=== PATIENT | female | born 1960 ===

== ENCOUNTER 2017-11-18 17:22 | Inpatient (IN) | payer MEDICAID, OTHER ==
--- NOTE | 2017-11-18 18:04 | ED PDOC ---
Arrival/HPI - General Chief Complaint: Abdominal Pain Time Seen by Provider: 11/18/17 17:48 Historian: Patient - History of Present Illness Narrative History of Present Illness (Text): 11/18/17 18:04 This 57 yo female with pmh htn, presents to this ED c/o suprapubic pain, dysuria , and urinary frequency x 3 days. Patient also noted an episode of nausea, and fever x 3 days ago. When I asked patient about vomiting, she denied. Patient denies sob, cp, vaginal discharge, dizziness, hematuria, or abnormal gait. Time/Duration: Other (see hpi) Context: Home Past Medical History - Provider Review Nursing Documentation Reviewed: Yes - Infectious Disease Hx of Infectious Diseases: None - Reproductive Menopause: Yes - Cardiac Hx Cardiac Disorders: Yes Hx Hypertension: Yes - Psychiatric Hx Substance Use: No - Surgical History Hx Cholecystectomy: Yes Other/Comment: abd surgery - Anesthesia Hx Anesthesia: Yes Hx Anesthesia Reactions: No Family/Social History - Physician Review Nursing Documentation Reviewed: Yes Family/Social History: Other (noncontributory) Smoking Status: Light Smoker < 10 Cigarettes Daily Hx Alcohol Use: No Hx Substance Use: No Allergies/Home Meds Allergies/Adverse Reactions: Allergies No Known Allergies Allergy (Verified 11/13/15 17:03) Home Medications: Home Meds Medication Instructions Recorded Confirmed No Known Home Med 11/18/17 11/18/17 Review of Systems - Review of Systems Constitutional: Normal. absent: Fatigue, Weight Change, Fevers, Night Sweats Eyes: Normal ENT: Normal Respiratory: Normal. absent: SOB, Cough Cardiovascular: Normal. absent: Chest Pain, Palpitations Gastrointestinal: Other (suprapubic pain) Genitourinary Female: Dysuria, Frequency. absent: Hematuria, Urine Output Changes, Vaginal Bleeding, Vaginal Discharge Musculoskeletal: Normal. absent: Back Pain Skin: Normal. absent: Rash Neurological: Normal. absent: Headache, Dizziness, Focal Weakness, Gait Changes , Speech Changes, Facial Droop, Disequilibrium Endocrine: Normal Hemo/Lymphatic: Normal Psychiatric: Normal Physical Exam Vital Signs Temp Pulse Resp BP Pulse Ox 11/18/17 21:27 71 18 150/81 100 11/18/17 20:54 98.3 F 72 18 150/81 100 11/18/17 20:49 79 18 121/68 98 11/18/17 17:37 99.1 F 88 18 125/70 99 Temperature: Afebrile Blood Pressure: Normal Pulse: Regular Respiratory Rate: Normal Appearance: Positive for: Well-Appearing, Non-Toxic, Comfortable Pain Distress: None Mental Status: Positive for: Alert and Oriented X 3 - Systems Exam Head: Present: Atraumatic, Normocephalic Pupils: Present: PERRL Extroacular Muscles: Present: EOMI Conjunctiva: Present: Normal Mouth: Present: Moist Mucous Membranes Neck: Present: Normal Range of Motion Respiratory/Chest: Present: Clear to Auscultation, Good Air Exchange. No: Respiratory Distress, Accessory Muscle Use Cardiovascular: Present: Regular Rate and Rhythm, Normal S1, S2. No: Murmurs Abdomen: Present: Tenderness (Mild suprapubic tenderness), Normal Bowel Sounds. No: Distention, Peritoneal Signs, Rebound, Guarding Back: Present: Normal Inspection. No: CVA Tenderness Upper Extremity: Present: Normal Inspection, Normal ROM. No: Cyanosis, Edema Lower Extremity: Present: Normal Inspection, Normal ROM. No: Edema Neurological: Present: GCS=15, CN II-XII Intact, Speech Normal Skin: Present: Warm, Dry, Normal Color. No: Rashes Psychiatric: Present: Alert, Oriented x 3, Normal Insight, Normal Concentration Medical Decision Making ED Course and Treatment: 11/18/17 20:49 Patient refused pain medication at this time. Pain is 2-3/10 11/18/17 21:04 Furniture Mover Driver was paged 11/18/17 21:55 Furniture Mover Driver (Fatou Babcock) came to see patient. She stated she spoke with Dr. Iglesias who recommended admission for appendectomy tomorrow. Dr. Iglesias recommended to have patient admitted under hospitalist service, and Dr. Iglesias will be on consult. 11/18/17 22:07 Patient agreed with plan for admission 11/18/17 22:[address] Roslyn Post, house doctor regarding patient Dx. appendicitis. She agreed with admission on her service. Re-evaluation Time: 22:59 Reassessment Condition: Re-examined, Improving,but remains with symptoms - Lab Interpretations Lab Results: 11/18/17 19:36 11/18/17 19:36 Lab Results 11/18/17 19:36: Sodium 141, Potassium 3.9, Chloride 102, Carbon Dioxide 25, Anion Gap 18, BUN 18, Creatinine 0.6 L, Est GFR ( Amer) > 60, Est GFR ( Non-Af Amer) > 60, Random Glucose 91, Calcium 9.6, Total Bilirubin 0.7, AST 28, ALT 28, Alkaline Phosphatase 77, Total Protein 7.6, Albumin 4.6, Globulin 3.0, Albumin/Globulin Ratio 1.6, Lipase 30 11/18/17 19:36: WBC 7.8, RBC 4.14, Hgb 11.7 L, Hct 35.1 L, MCV 84.8, MCH 28.3, MCHC 33.3, RDW 13.7, Plt Count 286, MPV 10.8, Gran % 53.6, Lymph % (Auto) 36.8 H , [place] % (Auto) 6.2 H, Eos % (Auto) 3.1, Baso % (Auto) 0.3, Gran # 4.18, Lymph # (Auto) 2.9, [place] # (Auto) 0.5, Eos # (Auto) 0.2, Baso # (Auto) 0.02 11/18/17 18:27: Urine Color Yellow, Urine Appearance Clear, Urine pH 6.0, Ur Specific [place] <= 1.005, Urine Protein Negative, Urine Glucose (UA) Negative, Urine Ketones Negative, Urine Blood Small H, Urine Nitrate Negative, Urine Bilirubin Negative, Urine Urobilinogen 0.2, Ur Leukocyte Esterase Negative, Urine RBC 10 - 15, Urine WBC 5 - 10, Ur Epithelial Cells 10 - 12 I have reviewed the lab results: Yes Interpretation: No clinic. lab abnormalty - RAD Interpretation Narrative RAD Interpretations (Text): 11/18/17 21:01 FINDINGS: Lung bases: Unremarkable. No mass. No consolidation. ABDOMEN: Liver: Unremarkable. No mass. Gallbladder and bile ducts: Status post cholecystectomy. No ductal dilation. Pancreas: Pancreas evaluation is limited. No ductal dilation. Spleen: Unremarkable. No splenomegaly. Adrenals: Unremarkable. No mass. Kidneys and ureters: Probable cyst in the left kidney. No hydronephrosis. Stomach and bowel: Unremarkable. No obstruction. No mucosal thickening. PELVIS: Appendix: The appendix is dilated measuring 1.2 cm, its fluid filled. There is wall enhancement. The findings are consistent with acute appendicitis. No abscess formation. No free air. Bladder: Unremarkable. No mass. Reproductive: Unremarkable as visualized. ABDOMEN and PELVIS: Intraperitoneal space: See above. Bones/joints: No acute fracture. No dislocation. Soft tissues: Unremarkable. Vasculature: Unremarkable. No abdominal aortic aneurysm. Lymph nodes: Unremarkable. No enlarged lymph nodes. IMPRESSION: The appendix is dilated measuring 1.2 cm, its fluid filled. There is wall enhancements. The findings are consistent with acute appendicitis. No abscess formation. No free air. Radiology Orders: 11/18/17 19:05 ABD & PELVIS IV CONTRAST ONLY [CT] Stat 11/18/17 22:50 CHEST PORTABLE [RAD] Routine - Medication Orders Current Medication Orders: Cefazolin Sodium (Ancef 1gm In Ns) 1 gm in 100 mls @ 100 mls/hr IVPB STAT STA PRN Reason: Protocol Stop: 11/18/17 23:48 Disposition/Present on Arrival - Present on Arrival Any Indicators Present on Arrival: No History of DVT/PE: No History of Uncontrolled Diabetes: No Urinary Catheter: No History of Decub. Ulcer: No History Surgical Site Infection Following: None - Disposition Have Diagnosis and Disposition been Completed?: Yes Diagnosis: Appendicitis Disposition: HOSPITALIZED Disposition Time: 23:00 Patient Plan: Admission Condition: STABLE Forms: [employer] (Estonian)
[2017-11-18 18:45] LABS: URINE BILIRUBIN NEGATIVE (NEGATIVE); URINE BLOOD SMALL (NEGATIVE); URINE GLUCOSE (UA) NEGATIVE (NEGATIVE); URINE LEUKOCYTE ESTERASE NEGATIVE Leu/uL (NEGATIVE); URINE PROTEIN NEGATIVE mg/dL (<30 mg/dL); URINE UROBILINOGEN 0.2 E.U./dL (<1 E.U./dL)
[2017-11-18 18:50] LABS: URINE APPEARANCE CLEAR (CLEAR); URINE COLOR YELLOW (YELLOW)
[2017-11-18] MEDS ORDERED: Iohexol 350 MG/100 ML VIAL ONE (19:10)
[2017-11-18 19:49] LABS: BASO # 0.02 K/mm3 (0.0-2.0); BASO % 0.3 % (0.0-3.0); EOS # 0.2 (0.0-0.7); EOS % 3.1 % (1.5-5.0); GRAN # 4.18 (1.4-6.5); GRAN % 53.6 % (50.0-68.0); HEMOGLOBIN 11.7 g/dL (12.0-16.0); LYMPH # 2.9 (1.2-3.4); LYMPH % 36.8 % (22.0-35.0); MEAN CELL VOLUME 84.8 fl (80.0-105.0); MEAN CORPUSCULAR HEMOGLOBIN 28.3 pg (25.0-35.0); MEAN CORPUSCULAR HGB CONC 33.3 g/dl (31.0-37.0); MEAN PLATELET VOLUME 10.8 fl (7.0-11.0); MONO # 0.5 (0.1-0.6); MONO % 6.2 % (1.0-6.0); RBC 4.14 10^6/uL (3.5-6.1); RED CELL DISTRIBUTION WIDTH 13.7 % (11.5-14.5); WHITE BLOOD COUNT 7.8 10^3/ul (4.5-11.0)
[2017-11-18 20:08] LABS: ALB/GLOB RATIO 1.6 (1.1-1.8); ALBUMIN 4.6 g/dL (3.0-4.8); ALT/SGPT 28 U/L (7-56); AST/SGOT 28 U/L (14-36); BLOOD UREA NITROGEN 18 mg/dL (7-21); CALCIUM 9.6 mg/dL (8.4-10.5); GFR AFRICAN-AMERICAN > 60; GFR NON-AFRICAN AMERICAN > 60; LIPASE 30 U/L (23-300)
--- NOTE | 2017-11-18 22:32 | CP.PCM.CON ---
Addendum entered and electronically signed by Fatou Cameron DO 11/19/17 08:17 : Correction: consult note is for Dr. Sales Original Note: <Fatou Cameron - Last Filed: 11/18/17 23:03> History of Present Illness - History of Present Illness History of Present Illness: GENERAL SURGERY CONSULT NOTE FOR DR. BALL 57yo F with PMHx of HTN presents to the ED with suprapubic abdominal pain. She initially had pain on Saturday which resolved with Aleve x2. The pain returned today and is located in the suprapubic/infraumbilical area. She vomited once on Saturday. No current nausea or vomiting. Denies diarrhea or constipation. Last BM yesterday. Pt had urinary frequency and mild dysuria on Saturday but it resolved. Pt last ate fruit for lunch but was "too scared to eat more than that". PMHx: HTN (not on medication) Surgeries: open cholecystectomy 30 years ago Allergies: none Medications: none Social history: occasional etoh, smokes 1/2 PPD, denies illicit drug use Review of Systems - Review of Systems All systems: reviewed and no additional remarkable complaints except (as per HPI ) Past Patient History - Infectious Disease Hx of Infectious Diseases: None - Past Social History Smoking Status: Light Smoker < 10 Cigarettes Daily - CARDIAC Hx Cardiac Disorders: Yes Hx Hypertension: Yes - PSYCHIATRIC Hx Substance Use: No - SURGICAL HISTORY Hx Cholecystectomy: Yes Other/Comment: abd surgery - ANESTHESIA Hx Anesthesia: Yes Hx Anesthesia Reactions: No Meds Allergies/Adverse Reactions: Allergies Allergy/AdvReac Type Severity Reaction Status Date / Time No Known Allergies Allergy Verified 11/13/15 17:03 Physical Exam - Constitutional Appears: Well, Non-toxic, No Acute Distress - Head Exam Head Exam: ATRAUMATIC, NORMAL INSPECTION - Eye Exam Eye Exam: EOMI, Normal appearance - Respiratory Exam Respiratory Exam: NORMAL BREATHING PATTERN. absent: Respiratory Distress - Cardiovascular Exam Cardiovascular Exam: +S1, +S2 - GI/Abdominal Exam GI & Abdominal Exam: Soft, Tenderness (tender RLQ > suprapubic). absent: Distended, Firm, Guarding, Hernia, Rebound, Rigid Additional comments: + McBurney point tenderness - Neurological Exam Neurological exam: Alert, CN II-XII Intact, Oriented x3 - Psychiatric Exam Psychiatric exam: Normal Affect, Normal Mood - Skin Skin Exam: Dry, Normal Color, Warm Results - Vital Signs Recent Vital Signs: Last Vital Signs Temp 98.3 F 11/18/17 20:54 Pulse 71 11/18/17 21:27 Resp 18 11/18/17 21:27 BP 150/81 11/18/17 21:27 Pulse Ox 100 11/18/17 21:27 - Labs Result Diagrams: 11/18/17 19:36 11/18/17 19:36 Labs: Laboratory Results - last 24 hr 11/18/17 11/18/17 11/18/17 18:27 19:36 19:36 WBC 7.8 RBC 4.14 Hgb 11.7 L Hct 35.1 L MCV 84.8 MCH 28.3 MCHC 33.3 RDW 13.7 Plt Count 286 MPV 10.8 Gran % 53.6 Lymph % (Auto) 36.8 H [place] % (Auto) 6.2 H Eos % (Auto) 3.1 Baso % (Auto) 0.3 Gran # 4.18 Lymph # (Auto) 2.9 [place] # (Auto) 0.5 Eos # (Auto) 0.2 Baso # (Auto) 0.02 Sodium 141 Potassium 3.9 Chloride 102 Carbon Dioxide 25 Anion Gap 18 BUN 18 Creatinine 0.6 L Est GFR ( Amer) > 60 Est GFR (Non-Af Amer) > 60 Random Glucose 91 Calcium 9.6 Total Bilirubin 0.7 AST 28 ALT 28 Alkaline Phosphatase 77 Total Protein 7.6 Albumin 4.6 Globulin 3.0 Albumin/Globulin Ratio 1.6 Lipase 30 Urine Color Yellow Urine Appearance Clear Urine pH 6.0 Ur Specific [place] <= 1.005 Urine Protein Negative Urine Glucose (UA) Negative Urine Ketones Negative Urine Blood Small H Urine Nitrate Negative Urine Bilirubin Negative Urine Urobilinogen 0.2 Ur Leukocyte Esterase Negative Urine RBC 10 - 15 Urine WBC 5 - 10 Ur Epithelial Cells 10 - 12 Assessment & Plan - Assessment and Plan (Free Text) Assessment: 57yo F with PMHx of HTN presents with abdominal pain - Afebrile, VSS - No leukocytosis - UA negative for UTI - CT w/ IV contrast: 1.2cm dilated and fluid filled appendix with wall enhancement consistent with acute appendicitis - Plan for OR tomorrow for appendectomy - Procedure explained to patient including risks, benefits, and alternatives. Pt agrees for surgery and written consent was obtained - NPO past midnight - IV fluids - IV antibiotics - Recheck labs in AM + coags - CXR & EKG - Discussed plan with Dr. Kelsie Cameron PGY-4 <Bety Sales - Last Filed: 11/19/17 16:18> Meds - Medications Medications: Current Medications Acetaminophen (Tylenol 325mg Tab) 650 mg PO Q6H PRN PRN Reason: Pain, Mild (1-3) Famotidine (Pepcid) 20 mg IVP DAILY [facility] Last Admin: 11/19/17 10:09 Dose: 20 mg Piperacillin Sod/Tazobactam Sod (Zosyn 3.375 In Ns 100ml) 100 mls @ 200 mls/hr IVPB Q6 SOFY PRN Reason: Protocol Stop: 11/19/17 18:29 Last Admin: 11/19/17 11:09 Dose: 200 mls/hr Lactated Ringer's (Lactated Ringer's) 1,000 mls @ 115 mls/hr IV .[id number] [facility] Last Admin: 11/19/17 12:25 Dose: 115 mls/hr Morphine Sulfate (Morphine) 2 mg IVP Q4 PRN PRN Reason: Pain, severe (8-10) Ondansetron HCl (Zofran Inj) 4 mg IVP Q4 PRN PRN Reason: Nausea/Vomiting Oxycodone/Acetaminophen (Percocet 5/325 Mg Tab) 1 tab PO Q4 PRN PRN Reason: Pain, moderate (4-7) Stop: 11/22/17 00:01 Results - Vital Signs Recent Vital Signs: Last Vital Signs Temp 98.6 F 11/19/17 15:45 Pulse 59 L 11/19/17 15:45 Resp 20 11/19/17 15:45 BP 124/67 11/19/17 15:45 Pulse Ox 99 11/19/17 15:45 - Labs Result Diagrams: 11/19/17 06:10 11/19/17 06:10 Labs: Laboratory Results - last 24 hr 11/19/17 11/19/17 11/19/17 06:10 06:10 06:10 WBC 7.0 RBC 4.09 Hgb 11.6 L Hct 35.2 L MCV 86.1 MCH 28.4 MCHC 33.0 RDW 14.1 Plt Count 295 MPV 10.7 Gran % 45.3 L Lymph % (Auto) 43.1 H [place] % (Auto) 6.0 Eos % (Auto) 5.2 H Baso % (Auto) 0.4 Gran # 3.17 Lymph # (Auto) 3.0 [place] # (Auto) 0.4 Eos # (Auto) 0.4 Baso # (Auto) 0.03 PT 12.5 INR 1.09 H APTT 37.7 H Sodium 143 Potassium 3.9 Chloride 107 Carbon Dioxide 27 Anion Gap 14 BUN 14 Creatinine 0.5 L Est GFR ( Amer) > 60 Est GFR (Non-Af Amer) > 60 Random Glucose 98 Calcium 9.0 Assessment & Plan - Assessment and Plan (Free Text) Plan: I personally saw and examined the patient with the resident staff and agree with the above assessment and plan. I personally reviewed the available diagnostic images and imaging reports. 57 Female 1 days of symptoms consistent with CT findings of early uncomplicated appendicitis. Risks and benefits of laparoscopic appendectomy, including but not limited to bowel injury, staple leak, intra-abdominal abscess, need for open surgery discussed and all questions answered. Patient understands these risks and wishes to proceed. Informed consent obtained. - Date & Time Date: 11/19/17 Time: 16:15
[2017-11-18] MEDS ORDERED: ceFAZolin 1 gm in NS 1 GM/100 ML BAG IVPB STA (22:49)
[2017-11-18] MEDS ORDERED: Oxycodone/Acetaminophen 5/325 mg Tab PO PRN (22:54)
[2017-11-18] MEDS ORDERED: Morphine 2 mg/ml ISec IVP PRN (22:55)
[2017-11-18] MEDS: Lactated Ringer's 1,000 ML IV SCH (23:40)
--- NOTE | 2017-11-19 00:02 | CP.PCM.HP ---
<Alirio Sales - Last Filed: 11/19/17 00:41> History of Present Illness - History of Present Illness History of Present Illness: Alirio Henrry PGY1 - Internal Medicine Orthopedics Nurse - Hospital H&P 57 F w/ a PMH of HTN presented to [facility] ED on 11/18 w/ a CC of LLQ and RLQ abdominal pain. She reported pain started on Saturday w/ associated 1x episode of NBNB vomit. On Saturday reported subjective fevers. Pt. stated that the pain is constant; non radiating sharp/ stabbing sensation gradually worsening over last 2-3 days. Patient is tolerating PO however stating she is scared to eat. Pain is alleviated w/ walking / moving. She denies any WELLS, BV, CP, Palp, SOB, Cough, D/C, FND, Nubmness/tingling, hematuria, and dysuria. In ED: Started on x1 Ancef, Zosym, percocet/morphine 2Q4; CTAP findings: The appendix is dilated measuring 1.2 cm, its fluid filled. There is wall enhancement. The findings are consistent with acute appendicitis. No abscess formation. No free air. CBC/ CMP WNL. Surgery consulted in ED. PMD: none Pharmacy: [facility] PMH: HTN - no Rx PSH: Cholecystectomy 30 years prior HomeRx: None Allergy: NKDA FamilyHx - mother HTN, Social history: occasional etoh, smokes 1/2 PPD, denies illicit drug use Present on Admission - Present on Admission Any Indicators Present on Admission: No Past Patient History - Infectious Disease Hx of Infectious Diseases: None - Past Social History Smoking Status: Light Smoker < 10 Cigarettes Daily - CARDIAC Hx Cardiac Disorders: Yes Hx Hypertension: Yes - PSYCHIATRIC Hx Substance Use: No - SURGICAL HISTORY Hx Cholecystectomy: Yes Other/Comment: abd surgery - ANESTHESIA Hx Anesthesia: Yes Hx Anesthesia Reactions: No Meds Allergies/Adverse Reactions: Allergies Allergy/AdvReac Type Severity Reaction Status Date / Time No Known Allergies Allergy Verified 11/13/15 17:03 Results - Vital Signs Recent Vital Signs: Last Vital Signs Temp 98.4 F 11/18/17 23:40 Pulse 70 11/18/17 23:40 Resp 18 11/18/17 23:40 BP 125/84 11/18/17 23:40 Pulse Ox 100 11/18/17 23:40 - Labs Result Diagrams: 11/18/17 19:36 11/18/17 19:36 Assessment & Plan - Assessment and Plan (Free Text) Assessment: 57 F w/ a PMH of HTN presented to [facility] ED on 11/18 w/ a CC of LLQ and RLQ abdominal pain; found to have acute appendicitis on CTAP. 1. Acute appendicitis: ED CTAP: The appendix is dilated measuring 1.2 cm, its fluid filled. There is wall enhancement. The findings are consistent with acute appendicitis. No abscess formation. No free air. NPO Cont Zofran for nausea PRN Cont Morphine 2mg q4 prn severe pain PRN Abx: x1 dose ancef given in ED, Started Zosyn; CBC/CMP nl in ED; Follow AM labs Surgical consult for reccs ; Plan for OR tomorrow for appendectomy 2. Hx HTN Monitor BP; Medically manage as needed 3. GI/DVT PPX Famotidine / SCDs Patient seen and discussed w/ attending Dr. Sejal Sales DO - PGY1 Internal Medicine Orthopedics Nurse - - Date & Time Date: 11/19/17 Time: 00:27 <Christina Post - Last Filed: 11/19/17 20:02> Results - Vital Signs Recent Vital Signs: Last Vital Signs Temp 98.4 F 11/19/17 19:20 Pulse 60 11/19/17 19:20 Resp 17 11/19/17 19:20 BP 121/64 11/19/17 19:20 Pulse Ox 100 11/19/17 19:20 - Labs Result Diagrams: 11/19/17 06:10 11/19/17 06:10 Labs: Laboratory Results - last 24 hr 11/19/17 11/19/17 11/19/17 06:10 06:10 06:10 WBC 7.0 RBC 4.09 Hgb 11.6 L Hct 35.2 L MCV 86.1 MCH 28.4 MCHC 33.0 RDW 14.1 Plt Count 295 MPV 10.7 Gran % 45.3 L Lymph % (Auto) 43.1 H [place] % (Auto) 6.0 Eos % (Auto) 5.2 H Baso % (Auto) 0.4 Gran # 3.17 Lymph # (Auto) 3.0 [place] # (Auto) 0.4 Eos # (Auto) 0.4 Baso # (Auto) 0.03 PT 12.5 INR 1.09 H APTT 37.7 H Sodium 143 Potassium 3.9 Chloride 107 Carbon Dioxide 27 Anion Gap 14 BUN 14 Creatinine 0.5 L Est GFR ( Amer) > 60 Est GFR (Non-Af Amer) > 60 Random Glucose 98 Calcium 9.0
[2017-11-19 01:25] VITALS: BMI 23.6
[2017-11-19] MEDS: Piperacillin/Tazobact 3.375 gm 100 ML IVPB SCH ×4 (02:58→18:49)
[2017-11-19 06:42] LABS: BASO # 0.03 K/mm3 (0.0-2.0); BASO % 0.4 % (0.0-3.0); EOS # 0.4 (0.0-0.7); EOS % 5.2 % (1.5-5.0); GRAN # 3.17 (1.4-6.5); GRAN % 45.3 % (50.0-68.0); HEMOGLOBIN 11.6 g/dL (12.0-16.0); LYMPH % 43.1 % (22.0-35.0); MEAN CELL VOLUME 86.1 fl (80.0-105.0); MEAN CORPUSCULAR HEMOGLOBIN 28.4 pg (25.0-35.0); MEAN PLATELET VOLUME 10.7 fl (7.0-11.0); MONO # 0.4 (0.1-0.6); RBC 4.09 10^6/uL (3.5-6.1); RED CELL DISTRIBUTION WIDTH 14.1 % (11.5-14.5)
[2017-11-19 06:54] LABS: INR 1.09 (0.93-1.08); PARTIAL THROMBOPLASTIN TIME 37.7 Seconds (25.1-36.5); PROTHROMBIN TIME 12.5 SECONDS (9.4-12.5)
[2017-11-19 07:14] LABS: BLOOD UREA NITROGEN 14 mg/dL (7-21); GFR AFRICAN-AMERICAN > 60; GFR NON-AFRICAN AMERICAN > 60
--- NOTE | 2017-11-19 08:39 | RAD ---
Date of service: 11/18/2017 HISTORY: preop COMPARISON: No prior. FINDINGS: LUNGS: The lungs are well inflated and clear. PLEURA: No significant pleural effusion identified, no pneumothorax apparent. CARDIOVASCULAR: Normal. OSSEOUS STRUCTURES: No significant abnormalities. VISUALIZED UPPER ABDOMEN: Normal. OTHER FINDINGS: Surgical clips in the right upper quadrant are related to prior cholecystectomy. IMPRESSION: No active pulmonary disease.
--- NOTE | 2017-11-19 09:20 | CT ---
Date of service: 11/18/2017 PROCEDURE: CT Abdomen and Pelvis with contrast HISTORY: suprapubic pain COMPARISON: None. TECHNIQUE: Contrast dose: 100 cc of Omni 350 Radiation dose: Total exam DLP = 262 mGy-cm. This CT exam was performed using one or more of the following dose reduction techniques: Automated exposure control, adjustment of the mA and/or kV according to patient size, and/or use of iterative reconstruction technique. FINDINGS: LOWER THORAX: Unremarkable. LIVER: Unremarkable. No gross lesion or ductal dilatation. GALLBLADDER AND BILE DUCTS: Removed PANCREAS: Unremarkable. No gross lesion or ductal dilatation. SPLEEN: Unremarkable. ADRENALS: Unremarkable. No mass. KIDNEYS AND URETERS: Unremarkable. No hydronephrosis. No solid mass. VASCULATURE: Unremarkable. No aortic aneurysm. BOWEL: Unremarkable. No obstruction. No gross mural thickening. APPENDIX: There is acute appendicitis. The appendix is fluid-filled and dilated to a diameter of 12 mm. There is enhancement of the wall. PERITONEUM: Unremarkable. No free fluid. No free air. LYMPH NODES: Unremarkable. No enlarged lymph nodes. BLADDER: Unremarkable. REPRODUCTIVE: Unremarkable. BONES: No acute fracture. OTHER FINDINGS: The report concurs with the preliminary [facility] report IMPRESSION: There is acute appendicitis. The appendix is fluid-filled and dilated to a diameter of 12 mm. There is enhancement of the wall.
--- NOTE | 2017-11-19 09:27 | CARD ---
APPROVED REPORT Date of service: 11/18/2017 EKG Measurement Heart [id number] <Conclusion> Normal sinus rhythm Normal ECG
[2017-11-19] MEDS: Lactated Ringer's 1,000 ML IV SCH (12:25)
--- NOTE | 2017-11-19 14:35 | CP.PCM.PN ---
<Chip Boo - Last Filed: 11/19/17 18:53> Subjective - Date & Time of Evaluation Date of Evaluation: 11/19/17 Time of Evaluation: 14:30 - Subjective Subjective: Chip Boo D.O PGY-1, Internal Medicine progress note for Dr. Sales Patient was examined at bedside. Patient still complains of abdominal pain. Denies fevers, chills, chest pain, shortness of breath, N/V/D, and urinary symptoms. Objective - Vital Signs/Intake and Output Vital Signs (last 24 hours): Temp Pulse Resp BP Pulse Ox 97.1 F L 59 L 18 114/63 97 11/19/17 06:00 11/19/17 06:00 11/19/17 06:00 11/19/17 06:00 11/19/17 06:00 Intake and Output: 11/19/17 11/19/17 06:59 18:59 Intake Total 0 Output Total 1 Balance -1 - Medications Medications: Current Medications Acetaminophen (Tylenol 325mg Tab) 650 mg PO Q6H PRN PRN Reason: Pain, Mild (1-3) Famotidine (Pepcid) 20 mg IVP DAILY [facility] Last Admin: 11/19/17 10:09 Dose: 20 mg Piperacillin Sod/Tazobactam Sod (Zosyn 3.375 In Ns 100ml) 100 mls @ 200 mls/hr IVPB Q6 SOFY PRN Reason: Protocol Stop: 11/19/17 18:29 Last Admin: 11/19/17 11:09 Dose: 200 mls/hr Lactated Ringer's (Lactated Ringer's) 1,000 mls @ 115 mls/hr IV .[id number] [facility] Last Admin: 11/19/17 12:25 Dose: 115 mls/hr Morphine Sulfate (Morphine) 2 mg IVP Q4 PRN PRN Reason: Pain, severe (8-10) Ondansetron HCl (Zofran Inj) 4 mg IVP Q4 PRN PRN Reason: Nausea/Vomiting Oxycodone/Acetaminophen (Percocet 5/325 Mg Tab) 1 tab PO Q4 PRN PRN Reason: Pain, moderate (4-7) Stop: 11/22/17 00:01 - Labs Labs: 11/19/17 06:10 11/19/17 06:10 PT 12.5 SECONDS (9.4-12.5) 11/19/17 06:10 INR 1.09 (0.93-1.08) H 11/19/17 06:10 APTT 37.7 Seconds (25.1-36.5) H 11/19/17 06:10 - Constitutional Appears: No Acute Distress - Head Exam Head Exam: ATRAUMATIC, NORMAL INSPECTION - Eye Exam Eye Exam: Normal appearance - ENT Exam ENT Exam: Mucous Membranes Moist - Respiratory Exam Respiratory Exam: Clear to Ausculation Bilateral. absent: Rales, Rhonchi, Wheezes - Cardiovascular Exam Cardiovascular Exam: REGULAR RHYTHM, +S1, +S2. absent: Gallop, Rubs, Murmur - GI/Abdominal Exam GI & Abdominal Exam: Guarding, Soft, Tenderness, Normal Bowel Sounds. absent: Distended, Rigid, Pulsatile Mass Additional comments: Very tender to palpation on right lower quadrant at Mcburneys point. Positive Rovsing's sign. - Extremities Exam Extremities Exam: absent: Calf Tenderness, Pedal Edema - Neurological Exam Neurological Exam: Alert, Awake, Oriented x3 - Psychiatric Exam Psychiatric exam: Normal Affect, Normal Mood - Skin Skin Exam: Dry, Normal Color, Warm Assessment and Plan - Assessment and Plan (Free Text) Assessment: Ms. Brown is a 57 yo female with PMH of HTN presenting with abdominal pain located on the right and left lower quadrants of the abdomen. CT abdomen and pelvis is positive for acute appendicitis. Patient is going to surgery today. Plan: Acute appendicitis - CT abdomen/pelvis (11/18): The appendix is dilated measuring 1.2 cm, its fluid filled. There is wall enhancement. The findings are consistent with acute appendicitis. No abscess formation. No free air. - Surgery consulted, patient is an add-on for surgery today later in the afternoon - Patient is NPO - c/w Zofran for nausea PRN - c/w percocet 5/325mg Q4 PRN for moderate pain and Morphine 2mg q4 prn severe pain PRN - Patient is on IVF: LR @115 mls/hr - One dose of Cefazolin given in ED, Started Zosyn History of hypertension - patient has not been on medication for more than 6 months- stopped due to insurance issues and do not remember the name of medication - blood pressure has been stable - will continue to monitor GI/DVT prophylaxis: Protonix, SCD's Patient seen, examined, and case discussed with Dr. Sales <Pamela Sales - Last Filed: 11/20/17 07:34> Objective - Vital Signs/Intake and Output Vital Signs (last 24 hours): Temp Pulse Resp BP Pulse Ox 98.4 F 60 17 121/64 100 11/19/17 19:20 11/19/17 19:20 11/19/17 19:20 11/19/17 19:20 11/19/17 19:20 Intake and Output: 11/20/17 11/20/17 06:59 18:59 Intake Total 740 Output Total 2 Balance 738 - Medications Medications: Current Medications Acetaminophen (Tylenol 325mg Tab) 650 mg PO Q6H PRN PRN Reason: Pain, Mild (1-3) Ondansetron HCl (Zofran Inj) 4 mg IVP Q4 PRN PRN Reason: Nausea/Vomiting Oxycodone/Acetaminophen (Percocet 5/325 Mg Tab) 1 tab PO Q4 PRN PRN Reason: Pain, moderate (4-7) Stop: 11/22/17 00:01 Last Admin: 11/20/17 05:03 Dose: 1 tab - Labs Labs: 11/19/17 06:10 11/19/17 06:10 PT 12.5 SECONDS (9.4-12.5) 11/19/17 06:10 INR 1.09 (0.93-1.08) H 11/19/17 06:10 APTT 37.7 Seconds (25.1-36.5) H 11/19/17 06:10 Attending/Attestation - Attestation I have personally seen and examined this patient.: Yes I have fully participated in the care of the patient.: Yes I have reviewed all pertinent clinical information, including history, physical exam and plan: Yes Notes (Text): Patient seen and examined by me at 11:50AM with resident. Case including HPI, physical exam, and physical assessment and plan discussed with resident. Agree with above with following additions/corrections. Patient states she is feeling ok. Complains of lower abdominal pain. Pain does radiate to entire abdomen and lower back. Pain comes and goes. Worse with movement. Pain medications are helping. No chest pain or shortness of breath. No fevers or chills. No headaches or dizziness. No dysuria. No diarrhea or constipation. Physical exam: Gen: Awake and alert lying in bed in no acute distress HEENT: Normocephalic atraumatic. Extraocular muscles intact, pupils equal reactive. Oropharynx is pink and moist, no pharyngeal erythema or exudate appreciated. Neck is supple. Cardiovascular: Normal rhythm, normal S1-S2. No murmurs, rubs, or gallops appreciated Pulmonary: Normal respiratory effort. No rhonchi, rales or wheezing appreciated. Gastrointestinal: Soft, positive right lower quadrant tenderness to light palpation, positive rebound, nondistended, positive bowel sounds all 4 quadrants , no guarding Musculoskeletal: Moves all extremities, no calf tenderness Central nervous system: AAOx3 Dermatologic: Skin warm and dry Assessment and plan: Patient is a 57-year-old female with past medical history significant for hypertension that presented to the emergency room with lower abdominal pain. Patient found to have acute appendicitis. 1. Acute appendicitis. CT abd/pelvis per radiologist shows acute appendicitis, appendix is fluid-filled and dilated to a diameter of 12 mm, there is enhancement of the wall. Surgery following, recommendations appreciated. Patient for surgery today. Continue IV fluids. Continue with pain management. Patient is nothing by mouth. 2. Lower abdominal pain. Secondary to #1. Continue pain management. Patient for surgery today. 3. Anemia. Unsure what patient's baseline H&H is. We'll monitor for now. 4. History of hypertension. Patient is not on any medications for this. Monitor blood pressure and add medications if needed. 5. DVT prophylaxis. Bilateral SCDs Case was discussed in detail with the patient and hospital medical biller regarding current diagnosis and treatment plan.
[2017-11-19] MEDS ORDERED: Succinylcholine 200 mg/10 ml Inj IV ONE (16:27)
[2017-11-19] MEDS ORDERED: Midazolam 2 MG/2 ML VIAL ONE (16:30)
[2017-11-19] MEDS ORDERED: Propofol 10 mg/ml Inj (20 ML) ONE (16:30)
[2017-11-19] MEDS ORDERED: Bupivacaine 0.25% Inj(30mL) ONE (16:38)
[2017-11-19] MEDS ORDERED: Lidocaine 1% w Epi 1:100,000 Inj ONE ×2 (16:38→16:41)
[2017-11-19] MEDS ORDERED: Rocuronium 10 mg/ml (5 ml) ONE (16:50)
[2017-11-19] MEDS ORDERED: LIDOCAIN/EPI 1-0.001% 10ML INJ SOL IJ ONE (16:52)
[2017-11-19] MEDS ORDERED: Bupivacaine 0.25% Inj(30mL) IJ ONE (16:52)
[2017-11-19] MEDS ORDERED: Neostigmine Methylsulfate 3mg/3ml Syringe IV ONE (18:09)
[2017-11-19] MEDS ORDERED: HYDROmorphone 0.5 mg/0.5 ml ISec IVP PRN (18:40)
--- NOTE | 2017-11-19 18:41 | PCM.SURG1 ---
Surgeon's Initial Post Op Note - Surgeon's Notes Surgeon: Dr. Sales Rn Neurology: Dr. Gregory PGY-3 Type of Anesthesia: General Endo Anesthesia Administered By: Dr. Young Pre-Operative Diagnosis: Acute Appendicitis Operative Findings: See operative report Post-Operative Diagnosis: Same Operation Performed: Laparoscopic Appendectomy Specimen/Specimens Removed: Appendix Estimated Blood Loss: EBL {In ML}: 10 Blood Products Given: N/A Drains Used: No Drains Post-Op Condition: Good Date of Surgery/Procedure: 11/19/17 Time of Surgery/Procedure: 18:41
[2017-11-19] MEDS ORDERED: Lactated Ringer's 1,000 ML IV SCH (18:45)
[2017-11-19 18:52] VITALS: TEMP 98.4
[2017-11-20 07:34] LABS: BASO # 0.02 K/mm3 (0.0-2.0); BASO % 0.2 % (0.0-3.0); EOS # 0.1 (0.0-0.7); EOS % 1.5 % (1.5-5.0); GRAN # 5.7 (1.4-6.5); HEMOGLOBIN 10.3 g/dL (12.0-16.0); MEAN CELL VOLUME 86.1 fl (80.0-105.0); MEAN CORPUSCULAR HEMOGLOBIN 28.7 pg (25.0-35.0); MEAN CORPUSCULAR HGB CONC 33.3 g/dl (31.0-37.0); MEAN PLATELET VOLUME 10.8 fl (7.0-11.0); MONO # 0.5 (0.1-0.6); MONO % 6.3 % (1.0-6.0); RBC 3.59 10^6/uL (3.5-6.1); RED CELL DISTRIBUTION WIDTH 14.1 % (11.5-14.5); WHITE BLOOD COUNT 8.4 10^3/ul (4.5-11.0)
[2017-11-20 07:52] LABS: BLOOD UREA NITROGEN 12 mg/dL (7-21); CALCIUM 8.7 mg/dL (8.4-10.5); GFR AFRICAN-AMERICAN > 60; GFR NON-AFRICAN AMERICAN > 60
[2017-11-20 08:25] VITALS: BP 119/67; PULSE 79; RESP 20; O2SAT 97
--- NOTE | 2017-11-20 11:48 | CP.PCM.PN ---
Subjective - Date & Time of Evaluation Date of Evaluation: 11/20/17 Time of Evaluation: 07:00 - Subjective Subjective: GENERAL SURGERY PROGRESS NOTE FOR DR. NAVAS Patient seen and examined at bedside. She is tolerating diet, denies nausea or vomiting. Pain well controlled with PO pain medications. Pt is OOB and ambulating. Objective - Vital Signs/Intake and Output Vital Signs (last 24 hours): Temp Pulse Resp BP Pulse Ox 98.4 F 79 20 119/67 97 11/20/17 06:00 11/20/17 06:00 11/20/17 06:00 11/20/17 06:00 11/20/17 06:00 Intake and Output: 11/20/17 11/20/17 06:59 18:59 Intake Total 740 Output Total 2 Balance 738 - Medications Medications: Current Medications Acetaminophen (Tylenol 325mg Tab) 650 mg PO Q6H PRN PRN Reason: Pain, Mild (1-3) Ondansetron HCl (Zofran Inj) 4 mg IVP Q4 PRN PRN Reason: Nausea/Vomiting Oxycodone/Acetaminophen (Percocet 5/325 Mg Tab) 1 tab PO Q4 PRN PRN Reason: Pain, moderate (4-7) Stop: 11/22/17 00:01 Last Admin: 11/20/17 05:03 Dose: 1 tab - Labs Labs: 11/20/17 07:00 11/20/17 07:00 PT 12.5 SECONDS (9.4-12.5) 11/19/17 06:10 INR 1.09 (0.93-1.08) H 11/19/17 06:10 APTT 37.7 Seconds (25.1-36.5) H 11/19/17 06:10 - Constitutional Appears: Well, Non-toxic, No Acute Distress - Head Exam Head Exam: ATRAUMATIC, NORMAL INSPECTION - Eye Exam Eye Exam: EOMI, Normal appearance - Respiratory Exam Respiratory Exam: NORMAL BREATHING PATTERN. absent: Respiratory Distress - Cardiovascular Exam Cardiovascular Exam: +S1, +S2 - GI/Abdominal Exam GI & Abdominal Exam: Soft, Tenderness (mild yuriy-incisional tenderness, appropriate in post operative period). absent: Distended, Firm, Guarding, Rigid - Neurological Exam Neurological Exam: Alert, Awake, Oriented x3 - Psychiatric Exam Psychiatric exam: Normal Affect, Normal Mood - Skin Skin Exam: Dry, Normal Color, Warm Assessment and Plan - Assessment and Plan (Free Text) Assessment: 57yo F with appendicitis s/p Laparoscopic Appendectomy POD#1 - Afebrile, VSS - Clear for DC home from surgical standpoint - Post op instructions sheet given to pt - Follow up in clinic in 2 weeks - September shower 36 hours after surgery, do not take a bath or swim - Leave surgical glue in place, it will come off on its own over time - Avoid heavy lifting - Discussed plan with Dr. Henrry Cameron PGY-4
--- NOTE | 2017-11-20 13:32 | CP.PCM.DIS ---
<Chip Boo - Last Filed: 11/20/17 23:11> Provider - Provider Date of Admission: 11/18/17 23:00 Attending physician: Kt Deleon MD Primary care physician: NO FAMILY PROVIDER Time Spent in preparation of Discharge (in minutes): 45 Diagnosis - Discharge Diagnosis (1) Appendicitis Status: Resolved Priority: High (2) Abdominal pain Status: Resolved Priority: Medium (3) Hypertension Status: Chronic Priority: Low (4) Anemia Status: Chronic Priority: Medium Hospital Course - Lab Results Lab Results: Most Recent Lab Values WBC 8.4 10^3/ul (4.5-11.0) 11/20/17 07:00 RBC 3.59 10^6/uL (3.5-6.1) 11/20/17 07:00 Hgb 10.3 g/dL (12.0-16.0) L 11/20/17 07:00 Hct 30.9 % (36.0-48.0) L 11/20/17 07:00 MCV 86.1 fl (80.0-105.0) 11/20/17 07:00 MCH 28.7 pg (25.0-35.0) 11/20/17 07:00 MCHC 33.3 g/dl (31.0-37.0) 11/20/17 07:00 RDW 14.1 % (11.5-14.5) 11/20/17 07:00 Plt Count 260 10^3/uL (120.0-450.0) 11/20/17 07:00 MPV 10.8 fl (7.0-11.0) 11/20/17 07:00 Gran % 68.0 % (50.0-68.0) 11/20/17 07:00 Lymph % (Auto) 24.0 % (22.0-35.0) 11/20/17 07:00 Benton % (Auto) 6.3 % (1.0-6.0) H 11/20/17 07:00 Eos % (Auto) 1.5 % (1.5-5.0) 11/20/17 07:00 Baso % (Auto) 0.2 % (0.0-3.0) 11/20/17 07:00 Gran # 5.70 (1.4-6.5) 11/20/17 07:00 Lymph # (Auto) 2.0 (1.2-3.4) 11/20/17 07:00 Benton # (Auto) 0.5 (0.1-0.6) 11/20/17 07:00 Eos # (Auto) 0.1 (0.0-0.7) 11/20/17 07:00 Baso # (Auto) 0.02 K/mm3 (0.0-2.0) 11/20/17 07:00 PT 12.5 SECONDS (9.4-12.5) 11/19/17 06:10 INR 1.09 (0.93-1.08) H 11/19/17 06:10 APTT 37.7 Seconds (25.1-36.5) H 11/19/17 06:10 Sodium 141 mmol/L (132-148) 11/20/17 07:00 Potassium 3.7 mmol/L (3.6-5.0) 11/20/17 07:00 Chloride 107 mmol/L (98-107) 11/20/17 07:00 Carbon Dioxide 25 mmol/L (21-33) 11/20/17 07:00 Anion Gap 13 (10-20) 11/20/17 07:00 BUN 12 mg/dL (7-21) 11/20/17 07:00 Creatinine 0.5 mg/dl (0.7-1.2) L 11/20/17 07:00 Est GFR ( Amer) > 60 11/20/17 07:00 Est GFR (Non-Af Amer) > 60 11/20/17 07:00 Random Glucose 96 mg/dL (70-110) 11/20/17 07:00 Calcium 8.7 mg/dL (8.4-10.5) 11/20/17 07:00 Total Bilirubin 0.7 mg/dL (0.2-1.3) 11/18/17 19:36 AST 28 U/L (14-36) 11/18/17 19:36 ALT 28 U/L (7-56) 11/18/17 19:36 Alkaline Phosphatase 77 U/L (38-126) 11/18/17 19:36 Total Protein 7.6 g/dL (5.8-8.3) 11/18/17 19:36 Albumin 4.6 g/dL (3.0-4.8) 11/18/17 19:36 Globulin 3.0 gm/dL 11/18/17 19:36 Albumin/Globulin Ratio 1.6 (1.1-1.8) 11/18/17 19:36 Lipase 30 U/L (23-300) 11/18/17 19:36 Urine Color Yellow (YELLOW) 11/18/17 18:27 Urine Appearance Clear (CLEAR) 11/18/17 18: Urine pH 6.0 (4.7-8.0) 11/18/17 18: Ur Specific Redfox <= 1.005 (1.005-1.035) 11/18/17 18: Urine Protein Negative mg/dL (<30 mg/dL) 11/18/17 18: Urine Glucose (UA) Negative mg/dL (NEGATIVE) 11/18/17 18: Urine Ketones Negative mg/dL (NEGATIVE) 11/18/17 18: Urine Blood Small (NEGATIVE) H 11/18/17 18: Urine Nitrate Negative (NEGATIVE) 11/18/17 18: Urine Bilirubin Negative (NEGATIVE) 11/18/17 18:27 Urine Urobilinogen 0.2 E.U./dL (<1 E.U./dL) 11/18/17 18: Ur Leukocyte Esterase Negative Izabel/uL (NEGATIVE) 11/18/17 18:27 Urine RBC 10 - 15 /hpf (0-2) 11/18/17 18:27 Urine WBC 5 - 10 /hpf (0-6) 11/18/17 18:27 Ur Epithelial Cells 10 - 12 /hpf (0-5) 11/18/17 18:27 - Hospital Course Hospital Course: Ms. Brown is a 57 yo female with PMH of HTN presenting with abdominal pain located on the right and left lower quadrants of the abdomen. CT abdomen and pelvis is positive for acute appendicitis. Patient underwent an appendectomy on 11/19/2017. Patient was admitted overnight for monitoring s/p surgery. Patient was treated with IV fluids, zofran PRN, acetominophen 325mg PRN, percocet 5/ 325mg PRN and pepcid. Patient denies having any home medications. During the course of her hospital stay, the patient underwent EKG, abdomen/pelvis CT, and chest xray. EKG showed normal sinus rhythm at 67 bmp, abdomen/pelvis CT showed that the appendix is dilated measuring 1.2 cm, its fluid filled. There is wall enhancement. The findings are consistent with acute appendicitis with no abscess formation, no free air. Chest xray showed no active disease. Surgery ( Dr. Bety Sales) was consulted in the management and care of this patient. Upon discharge, surgery instructed the patient to follow up with Dr. Bety Sales in 2 weeks, not allowed to take a shower or take a bath until after 36 hours and do not swim, leave surgical glue in place as it will come off on its own, and avoid lifting heavy objects. Patient instructed to start new medications as prescribed: percocet 5/325mg Q6 PRN and to avoid driving or operate heavy machinery while on the medication. Patient was educated on the correct way to take medications and was also instructed to follow up with her PMD in 5-7 days and to also repeat complete blood count to further evaluate her chronic anemia. She was instructed to resume activities as tolerated, stay hydrated, and eat a healthy diet. Patient further informed to return to the ED if symptoms return. Patient is now medically optimized for discharge. Discharge Exam - Head Exam Head Exam: ATRAUMATIC, NORMAL INSPECTION - Eye Exam Eye Exam: Normal appearance - ENT Exam ENT Exam: Mucous Membranes Moist - Respiratory Exam Respiratory Exam: Clear to PA & Lateral. absent: Rales, Rhonchi, Wheezes - Cardiovascular Exam Cardiovascular Exam: REGULAR RHYTHM, +S1, +S2. absent: Gallop, Rubs, Systolic Murmur - GI/Abdominal Exam GI & Abdominal Exam: Normal Bowel Sounds, Soft, Tenderness Additional comments: Incision site above the umbilicus C/D/I, tender to palpation on all quadrants - Extremities Exam Additional comments: no calf tenderness or pedal edema - Psychiatric Exam Psychiatric exam: Normal Affect, Normal Mood - Skin Skin Exam: Dry, Normal Color, Warm Discharge Plan - Discharge Medications Prescriptions: oxyCODONE/Acetaminophen [Percocet 5/325 mg Tab] 1 ea PO Q6H PRN #12 tab PRN Reason: Pain, Severe (8-10) - Follow Up Plan Condition: STABLE Disposition: HOME/ ROUTINE Instructions: Quitting Smoking for Older Adults, Appendicitis, Adult (DC), Appendectomy, Laparoscopic Surgery (DC) Additional Instructions: 1. Please take medications as prescribed. You are started percocet 5/325mg every 6 hours as needed for severe pain. Do not drive or operate heavy machinery while taking this medication. 2. Please follow up with primary care physician within 3-5 days from discharge 3. Please follow up with your general surgeon Dr. Bety Sales within 2 weeks from discharge. 4. Please repeat complete blood count on an outpatient basis for further evaluation of your chronic anemia with your primary care physician. 5. Return to the emergency department for worsening of symptoms. Referrals: FAMILY PROVIDER,KIMBERLI [Primary Care Provider] - Bety Sales MD [Staff Provider] - <Pamela Sales R - Last Filed: 11/21/17 08:58> Provider - Provider Date of Admission: 11/18/17 23:00 Attending physician: Kt eDleon MD Primary care physician: KIMBERLI FAMILY PROVIDER Hospital Course - Lab Results Lab Results: Most Recent Lab Values WBC 8.4 10^3/ul (4.5-11.0) 11/20/17 07:00 RBC 3.59 10^6/uL (3.5-6.1) 11/20/17 07:00 Hgb 10.3 g/dL (12.0-16.0) L 11/20/17 07:00 Hct 30.9 % (36.0-48.0) L 11/20/17 07:00 MCV 86.1 fl (80.0-105.0) 11/20/17 07:00 MCH 28.7 pg (25.0-35.0) 11/20/17 07:00 MCHC 33.3 g/dl (31.0-37.0) 11/20/17 07:00 RDW 14.1 % (11.5-14.5) 11/20/17 07:00 Plt Count 260 10^3/uL (120.0-450.0) 11/20/17 07:00 MPV 10.8 fl (7.0-11.0) 11/20/17 07:00 Gran % 68.0 % (50.0-68.0) 11/20/17 07:00 Lymph % (Auto) 24.0 % (22.0-35.0) 11/20/17 07:00 Benton % (Auto) 6.3 % (1.0-6.0) H 11/20/17 07:00 Eos % (Auto) 1.5 % (1.5-5.0) 11/20/17 07:00 Baso % (Auto) 0.2 % (0.0-3.0) 11/20/17 07:00 Gran # 5.70 (1.4-6.5) 11/20/17 07:00 Lymph # (Auto) 2.0 (1.2-3.4) 11/20/17 07:00 Benton # (Auto) 0.5 (0.1-0.6) 11/20/17 07:00 Eos # (Auto) 0.1 (0.0-0.7) 11/20/17 07:00 Baso # (Auto) 0.02 K/mm3 (0.0-2.0) 11/20/17 07:00 PT 12.5 SECONDS (9.4-12.5) 11/19/17 06:10 INR 1.09 (0.93-1.08) H 11/19/17 06:10 APTT 37.7 Seconds (25.1-36.5) H 11/19/17 06:10 Sodium 141 mmol/L (132-148) 11/20/17 07:00 Potassium 3.7 mmol/L (3.6-5.0) 11/20/17 07:00 Chloride 107 mmol/L (98-107) 11/20/17 07:00 Carbon Dioxide 25 mmol/L (21-33) 11/20/17 07:00 Anion Gap 13 (10-20) 11/20/17 07:00 BUN 12 mg/dL (7-21) 11/20/17 07:00 Creatinine 0.5 mg/dl (0.7-1.2) L 11/20/17 07:00 Est GFR ( Amer) > 60 11/20/17 07:00 Est GFR (Non-Af Amer) > 60 11/20/17 07:00 Random Glucose 96 mg/dL (70-110) 11/20/17 07:00 Calcium 8.7 mg/dL (8.4-10.5) 11/20/17 07:00 Total Bilirubin 0.7 mg/dL (0.2-1.3) 11/18/17 19:36 AST 28 U/L (14-36) 11/18/17 19:36 ALT 28 U/L (7-56) 11/18/17 19:36 Alkaline Phosphatase 77 U/L (38-126) 11/18/17 19:36 Total Protein 7.6 g/dL (5.8-8.3) 11/18/17 19:36 Albumin 4.6 g/dL (3.0-4.8) 11/18/17 19:36 Globulin 3.0 gm/dL 11/18/17 19:36 Albumin/Globulin Ratio 1.6 (1.1-1.8) 11/18/17 19:36 Lipase 30 U/L (23-300) 11/18/17 19:36 Urine Color Yellow (YELLOW) 11/18/17 18:27 Urine Appearance Clear (CLEAR) 11/18/17 18:27 Urine pH 6.0 (4.7-8.0) 11/18/17 18:27 Ur Specific Redfox <= 1.005 (1.005-1.035) 11/18/17 18:27 Urine Protein Negative mg/dL (<30 mg/dL) 11/18/17 18:27 Urine Glucose (UA) Negative mg/dL (NEGATIVE) 11/18/17 18:27 Urine Ketones Negative mg/dL (NEGATIVE) 11/18/17 18:27 Urine Blood Small (NEGATIVE) H 11/18/17 18:27 Urine Nitrate Negative (NEGATIVE) 11/18/17 18:27 Urine Bilirubin Negative (NEGATIVE) 11/18/17 18:27 Urine Urobilinogen 0.2 E.U./dL (<1 E.U./dL) 11/18/17 18:27 Ur Leukocyte Esterase Negative Izabel/uL (NEGATIVE) 11/18/17 18:27 Urine RBC 10 - 15 /hpf (0-2) 11/18/17 18:27 Urine WBC 5 - 10 /hpf (0-6) 11/18/17 18:27 Ur Epithelial Cells 10 - 12 /hpf (0-5) 11/18/17 18:27 Attending/Attestation - Attestation I have personally seen and examined this patient.: Yes I have fully participated in the care of the patient.: Yes I have reviewed all pertinent clinical information, including history, physical exam and plan: Yes Notes (Text): Patient seen and examined by me with resident at 12:45PM 11/20/17. Case including discharge plan discussed with resident. Agree with above with following additions/corrections Patient is a 57-year-old female with past medical history significant for hypertension that presented to the emergency room with lower abdominal pain. Please see dictated H&P for further details. Patient was admitted with lower abdominal pain and was found to have acute appendicitis. CT abdomen and pelvis per radiologist showed acute appendicitis, appendix is fluid-filled and dilated to a diameter of 12 mm, there is enhancement of the wall. Surgery was consulted. Patient was placed on warfarin for pain. Patient was made nothing by mouth and placed on IV fluids. Patient went for appendectomy following day. Status post appendectomy patient was doing well. Patient was able to tolerate her diet. Patient was having flatus. There was no nausea or vomiting. Patient was having some pain at surgical sites. However, the pain was controlled. Patient also had acute on chronic anemia secondary to dilutional effects from IV fluids and acute blood loss from surgery. Patient advised to have repeat blood work done with her primary care doctor. Patient was cleared for discharge by surgical team. Patient was provided with postop instructions. Patient was advised to follow-up with the surgeon in 2 weeks. Per surgical team patient may shower 36 hours after surgery , patient is not to take a bath or swim. Patient was advised to avoid heavy lifting. Patient was doing well wanted to go home. Patient was discharged home. Physical exam: Gen: Awake and alert sitting up in bed in no acute distress HEENT: Normocephalic atraumatic. Extraocular muscles intact, pupils equal reactive. Oropharynx is pink and moist, no pharyngeal erythema or exudate appreciated. Neck is supple. Cardiovascular: Normal rhythm, normal S1-S2. No murmurs, rubs, or gallops appreciated Pulmonary: Normal respiratory effort. No rhonchi, rales or wheezing appreciated. Gastrointestinal: Soft, mild distention, positive generalized tenderness, positive bowel sounds all 4 quadrants, no guarding. Incision sites clean, dry, and intact Musculoskeletal: Normal range of motion all extremities, no calf tenderness, no CVA tenderness Central nervous system: AAO 3. Cranial nerves 2 through 12 grossly intact. 5 out of 5 muscle strength all extremities. Sensation intact. Dermatologic: Skin warm and dry Please see chart for full details. Follow up instructions. Patient to follow-up with the primary care physician doctor within 3-5 days and follow up with her general surgeon Dr. Bety Sales within 2 weeks. Patient have repeat blood work done with her primary care physician for acute on chronic anemia. All instructions explained to patient in detail. Patient both understands and agrees to all instructions. Time spent in discharging the patient including chart review, medication reconciliation, discussion with the patient, emergency medical technician basic, consultants, and nursing staff was approximately 35 minutes.
--- NOTE | 2017-11-20 17:49 | PCM.OP ---
Operative Report - Operative Report Date of Surgery/Procedure: 11/20/17 Time of Surgery/Procedure: 04:30 Surgeon: Bety Sales MD Manager Clinical Services: Clarisa Gregory DO (PGY4 resident) Anesthesia/Sedation: General endotracheal; 1% lidocaine + 0.25% Marcaine mix local anesthesia Pre-Operative Diagnosis: Acute appendicitis. Hypertension. s/p open cholecystectomy. s/p tubal ligation Post-Operative Diagnosis: Acute appendicitis without perforation. Hypertension. s/p open cholecystectomy. s/p tubal ligation Indication for Surgery: This is a 57 year old female who presented to the emergency department with 24 hours of abdominal pain which migrated to his right lower quadrant and supra-pubic region, with CT scan demonstrated dilated appendix with wall thickening, periappendiceal inflammation, without evidence of perforation or abscess. Taken to OR for laparoscopic appendectomy. Risks and benefits of laparoscopic possible open, appendectomy discussed as documented in clinical chart. All questions answered and informed consent signed prior to operation. Operative Findings: Inflamed and dilated appendix, adherent to terminal ileum fat pad. Normal appearing cecum. Dilated, mildly inflamed appendix without evidence of perofation. Scant fluid in pelvis; Appendix removed intact; Mesoappendiceal and cecal staple lines in tact without leak or bleeding at end of case. Left adnexa in contact with inflamed appendix also appeared mildly inflamed, otherwsie normal;. Thin clear adhesions noted from small bowel-to- abdominal wall mainly in right upper quandrant and yuriy-umbical from prior operations noted in chart. No signs of obstruction. Procedure/Operation Description: PROCEDURE PERFORMED: Laparoscopic Appendectomy. Omental buttress of cecal staple line. DETAILS OF PROCEDURE: The patient was given a preoperative dose of Ancef 20 minutes prior to incision and had been on Zosyn on admission. SCD boots were placed for DVT prophylaxis. An orogastric tube placed in order to empty the stomach after the induction of general anesthesia. Upper body warmer placed. Patient voided in pre-op immediately prior to coming to OR and no marin catheter was used. Minimal hair removal performed with shaver. Timeout was perforemd prior to incison. All skin incisions made using 11 blade salpel after injection of local anesthesia at site. The abdomen was prepped and draped in sterile fashion. A transverse incision inferior portion umbilicus was made in the skin and taken down to umbilical raphe and fascia grasped, incised and pre-peritoneal fat encountered. A 10mm port was then placed under direct vision and the abdomen was insufflated. Do do high intial opening abdominal pressure the 11 trocar was removed and Abdominal entry was gained using an 5mm optically viewing trocar with A 5mm 0-degree laparoscope placed in [facility] point in the left upper quadrant. All layers of the abdominal wall were seen and peritoneal entry directly visualized. The abdomen was then insufflated with C02 pneumoperitoneum to 15mmhg. A 5mm 0-degree laparoscope was then inserted and the abdomen was generally inspected. No signs of injury noted. Umbilical site inspected and noted to have fatty adhesions which explained why were getting high pressure with initial cut down approach at umbilical. No bowel was in the vicinity and no signs of bowel injury noted. The 11mm port was then placed at the at this umbilcus under direct vision. An additional 5mm working port placed in left iliac fossa similarly. The abdomen was generally insepected and no other pathology found. Scant fluid in pelvis. Dilated, mildly inflamed appendix without perforation noted. We began by sweeping the small intestine out of the pelvis and easily visualized the cecum tracing the taenia down to the appendix and terminal ileum with identifcation of the fat/fold of treves. A mesenteric window was created bluntly in between base of appendix at cecum and mesoappendix , and 45m linear stapler vascular white load was used to ligate and divide the appendiceal pedicle. The staple line was inspected and noted to be intact without bleeding. Next a 45 mm blue load linear staple was used to divide the appendix at its base, being sure not to incorporate cecum. The specimen was placed in an Endocatch bag and removed from the 12mm trocar. The trocar reinserted and we next turned our attention to inspecting the staple line. The staple lines were carefully inspected and appeared hemostatic. Omentum was then draped over the suture line and instruments and ports removed under direct vision. The abdomen was then desufflated. 0-vycrl suture in a figure of eight fashion x1 was used to close the umilical fasia. The skin was closed with 4-0 monocryl and dermabond. All sponge, needle and instrument counts were correct. The patient was extubated in the operating room, and taken to the recovery room in stable condition. I was present for the entirety of the operation. Estimated Blood Loss: 10mL Complications: none Specimen: Appendix Discharge & Condition: Stable to pacu
== END 2017-11-20 14:45 | disposition home or self-care (01) | DRG 883 ==
LOC: ED 17:22 → ERH 23:00 → 5RNO 11-19 00:51
PROVIDERS: ADMIT Internal Medicine; ATTEND Internal Medicine
PROC: 0DTJ4ZZ Resection of Appendix, Percutaneous Endoscopic Approach (ICD-10-PCS; principal; 2017-11-19 16:30)
DX: K35.80 Unspecified acute appendicitis (principal); D62 Acute posthemorrhagic anemia; K66.0 Peritoneal adhesions (postprocedural) (postinfection); F17.210 Nicotine dependence, cigarettes, uncomplicated; I10 Essential (primary) hypertension; Z90.49 Acquired absence of other specified parts of digestive tract